=== PATIENT | female | born 1990 | race Caucasian/White ===

== ENCOUNTER → 2022-03-23 12:47 | Outpatient (CLI) | payer BC, SELFPAY ==
--- NOTE | ~2022-03-23 | US_ITS ---
US abdomen complete DATE: 03/23/2022 13:11 INDICATION: Abdominal pain for 2 days, radiating to back. Nausea. TECHNIQUE: Real-time imaging of complete abdomen COMPARISON: None FINDINGS: The liver, spleen, pancreas, gallbladder and common bile duct appear normal. Negative sonog raphic Bach's sign. Common bile duct measures 4 mm, normal Right kidney 11.6 cm length, left kidney 11.2 cm. No renal mass lesion or hydronephrosis. Normal caliber of the abdominal aorta. The inferior vena cava is unremarkable. IMPRESSION: Negative Reviewed, dictated and finalized at Location [facility]. Reviewed, dictated and finalized at location B. IMPRESSION: Negative
--- NOTE | ~2022-03-23 | XR_ITS ---
EXAMINATION: XR abdomen/kub 1V INDICATION: Unspecified abdominal pain TECHNIQUE: Supine views of the abdomen were obtained on 2 radiographs. COMPARISON: None FINDINGS: The bowel gas pattern is normal. There are no dilated loops of bowel. An IUD is noted. Ther e are phleboliths in the pelvis. The visualized osseous structures are unremarkable. IMPRESSION: 1. No radiographic correlate for the patient's symptoms. Reviewed, dictated and finalized at location A.
== END ==
PROVIDERS: PCP Family Medicine; Visit Provider Nurse Practitioner Family
DX: R10.9 Unspecified abdominal pain (principal)
CPT/HCPCS: 74018; 76700

== ENCOUNTER 2022-03-24 20:17 | Inpatient (IN) | payer BC, SELFPAY ==
--- NOTE | ~2022-03-24 | CT_ITS ---
EXAMINATION: CT abdomen pelvis w con DATE: 03/24/2022 23:40 INDICATION: Abdomen pain, vomiting and leukocytosis TECHNIQUE: Computed tomography (CT) of the abdomen and pelvis was performed with 100 cc Omnipaque 300 intravenous contrast. The dose-length product was 245.29 mGy-cm. Automated exposure control and iter ative reconstruction technique were employed. COMPARISON: None. FINDINGS: Lung bases unremarkable. Heart size normal. No significant pleural or pericardial effusion. The liver, spleen, pancreas, adrenal glands and right kidney are unremarkable. There is a subcentime ter hypodensity of the left kidney, most likely benign cysts. Gallbladder is present. Nonobstructive bowel gas pattern. There is a dilated appendix with associated appendicolith. There is significant velasquez rrounding inflammation/phlegmonous change and fluid, consistent with acute appendicitis. Cannot exclu de small periappendiceal abscess. IMPRESSION: 1. Acute appendicitis. Cannot exclude periappendiceal abscess. Reviewed, dictated and finalized at location A.
[2022-03-24 21:00] VITALS: BP 118/85; PULSE 95; RESP 18; TEMP 36.6; O2SAT 97
[2022-03-24 23:22] LABS: Appearance Urine Slightly Cloudy (Clear); Bilirubin Urine 2+ (Negative); Blood Urine Negative (Negative); Glucose Urine UA Negative (Negative); Ketones Urine 4+ mg/dL (Negative); Leukocyte Esterase Ur Trace LEU/UL (Negative); Nitrate Urine Negative (Negative); Protein Urine 1+ mg/dL (Negative); Specific Grav Ur 1.025 (1.001-1.035)
[2022-03-24 23:23] LABS: Basophils Absolute Auto 0.1 K/mm3 (0.0-0.1); Basophils Percent Auto 0.4 % (0.2-1.2); Hematocrit 41.7 % (37.0-47.0); Hemoglobin 13.8 g/dL (12.0-15.0); Immature Granulocyte Absolute 0.21 K/mm3 (0.00-0.031); Lymphocytes Absolute Auto 1.03 K/mm3 (0.9-3.2); Lymphocytes Percent Auto 4.9 % (18.3-44.2); Mean Corpuscular HGB Conc 33.1 g/dl (32-36); Mean Corpuscular Hemoglobin 31.9 pg (26-34); Mean Corpuscular Volume 96.5 fl (80-100); Mean Platelet Volume 9.8 fl (7.4-10.4); Monocytes Absolute Auto 1.4 K/mm3 (0.1-0.6); Monocytes Percent Auto 6.8 % (2.6-8.5); Neutrophils Absolute Auto 18.3 K/mm3 (1.3-6.7); Neutrophils Percent Auto 86.9 % (45.5-73.1); Platelet Count Result 284 k/mm3 (150-375); Red Blood Count 4.32 M/mm3 (4.2-5.4); Red Cell Distribution Width 11.9 % (11.5-14.5); White Blood Count 21.1 K/mm3 (4.5-10.0)
[2022-03-24 23:26] LABS: Alanine Aminotransferase 12 U/L (6-35); Albumin Level 4.5 g/dL (3.5-5.1); Alkaline Phosphatase 68 U/L (38-126); Anion Gap 9 mmol/L (8-16); Aspartate Amino Transferase 18 U/L (14-36); Bilirubin,Total 0.9 mg/dL (0.2-1.3); Blood Urea Nitrogen 8 mg/dL (7-17); Calcium 8.8 mg/dL (8.4-10.2); Carbon Dioxide 26 mmol/L (22-30); Chloride 97 mmol/L (98-107); Estimated CRCL calculation 117 ml/min; Estimated Glomerular Filt Rate > 60; Glucose 141 mg/dL (65-110); Lipase 18 U/L (23-300); Potassium 3.6 mmol/L (3.4-5.0); Sodium 132 mmol/L (137-145)
[2022-03-24] MEDS: ONDANSETRON INJ 4 MG/2 ML VIAL IV PUSH (23:27)
[2022-03-24] MEDS: FAMOTIDINE 20 MG/2 ML VIAL IV PUSH (23:27)
--- NOTE | 2022-03-24 23:34 | ED.ABDPAIN ---
HPI - Abdominal Pain General Chief Complaint: Abdominal Pain <JAIME Hebert Last Filed: 03/25/22 00:49> Stated Complaint: abdominal pain, n/v <JAIME Hebert Last Filed: 03/25/22 00:49> Time Seen by Provider: 03/24/22 23:08 <JAIME Hebert Last Filed: 03/25/22 00:49> Source: patient <JAIME Hebert Last Filed: 03/25/22 00:49> Mode of arrival: ambulatory <JAIME Hebert Last Filed: 03/25/22 00:49> Limitations: no limitations <JAIME Hebert Last Filed: 03/25/22 00:49> History of Present Illness HPI narrative: This is a 31-year-old female that presents to the emergency department for lower abdominal pain. Ongoing over the last couple of days. Associated with nausea and vomiting. Reports pain is diffusely in the lower abdomen. It radiates into her flank. Denies fever, diarrhea, dysuria, or hematuria. <JAIME Hebert Last Filed: 03/25/22 00:49> Related Data Home Medications: Home Medications Medication Instructions Recorded Confirmed levonorgestrel 20 mcg/24 hours (7 1 insert intrauterine ONCE 06/17/21 03/23/22 yrs) 52 mg intrauterine device (Mirena) <JAIME Hebert Last Filed: 03/25/22 00:49> Allergies/Adverse Reactions: Allergies Allergy/AdvReac Type Severity Reaction Status Date / Time No Known Allergies Allergy Verified 03/23/22 10:07 <JAIME Hebert Last Filed: 03/25/22 00:49> Review of Systems Review of Systems: CONSTITUTIONAL: Denies fever GASTROINTESTINAL: Reports abdominal pain, nausea, vomiting. Denies diarrhea. GENITOURINARY: Denies dysuria or hematuria. <JAIME Hebert Last Filed: 03/25/22 00:49> All systems reviewed & are unremarkable except as noted in HPI and below <Madeleine Amaro PA-C - Last Filed: 03/25/22 00:49> [facility] Past Medical History Medical History: Medical History Anxiety BMI 22.0-22.9, adult Depression <JAIME Hebert Last Filed: 03/25/22 00:49> Surgical History Surgical History: Surgical History [place] teeth removed <JAIME Hebert Last Filed: 03/25/22 00:49> Family History Family History: Family History Grandparent History of blood clots Cerebrovascular accident Father Hypertension Mother No problems noted. Sibling No problems noted. 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 HEAD: Normocephalic, atraumatic. EYES: EOMI. CHEST: Clear to auscultation. No respiratory distress. No wheezes rales or rhonchi HEART: Regular rate and rhythm. No murmur heard. Normal peripheral pulses. ABDOMEN: Soft, nondistended, normal active bowel sounds. Tender to palpation throughout the lower abdomen, without guarding. No CVA tenderness EXTREMITIES: Normal range of motion. No edema. SKIN: Warm, dry, no rash. NEURO: No focal deficits. Alert and oriented x3. PSYCH: Normal mood and affect <Madeleine Amaro PA-C - Last Filed: 03/25/22 00:49> Course
[2022-03-24 23:37] LABS: Add Urine Microscopic? YES; Color Urine Dark Yellow (Yellow)
[2022-03-24 23:39] LABS: Bacteria Urine Trace /hpf; Mucus Urine Heavy /lpf; Squamous Epithelial Cell Urine Many /hpf (Few); WBC Urine 21-30 /hpf
[2022-03-24 23:46] VITALS: BP 120/74; PULSE 94; RESP 18; O2SAT 100
[2022-03-24 23:48] VITALS: O2SAT 99
[2022-03-24] MEDS: SODIUM CHLORIDE 0.9% IV 1,000 ML 999 ML IV CONT (23:50)
[2022-03-25] VITALS (17 sets, daily range): BP systolic 103–149; BP diastolic 60–87; PULSE 66–94; RESP 12–20; TEMP 36.3–37.1; O2SAT 97–100; BMI 22.8; BMI 26.5
[2022-03-25] MEDS: SODIUM CHLORIDE 0.9% IV 1,000 ML 125 ML IV CONT ×2 (01:11→11:03)
[2022-03-25 01:19] LABS: Lactic Acid Reflex 0.7 mmol/L (0.7-2.0)
--- NOTE | 2022-03-25 01:52 | ADMGEN ---
This patient, Madonna Lackey, was admitted to 2 Medical Room 243-01. Patient/family oriented to hospital policies and general routines including ID bracelet, bed and alarms, visiting hours, pain management, procedures, bathroom and other care routines, personal items, smoking policy, room service/diet, and visiting hours. Information on how to activate the Rapid Response Team has been discussed. Patient/Family are encouraged to report perceived risks to care and to ask questions if they do not understand what they are told or what they should do.
[2022-03-25] MEDS: MORPHINE SULFATE (*CRX) 4 MG/ML INJ IV PUSH ×4 (02:16→23:12)
--- NOTE | 2022-03-25 08:19 | PM.IMHP ---
H&P: HPI History of Present Illness Date/Time: 03/25/22 08:19 Chief Complaint: lower abdominal pain Narrative: This is a 31-year-old White female that presented to the [facility] emergency department early this morning for lower abdominal pain.? it had been ongoing over the last couple of days. (further history from the patient reveals that it 1st started in the afternoon on Wednesday of last weekend. Therefore, she is now proximally 72 hours after the initial onset of discomfort).? Associated with nausea.? Reports pain is diffusely in the lower abdomen.? She tells me today that pain is more to the right than the left now.? Denies fever, diarrhea, dysuria, or hematuria. Workup in the emergency room revealed a significantly elevated white count [address]20. CT scan of the abdomen and pelvis then revealed what appeared to be an abnormal appendix with an appendicolith. (See report). Therefore, after discussing this with Madeleine in the ED we put the patient in as observation patient and I have planned on recommending an appendectomy if patient agrees. Review of Systems Review of Systems: All systems reviewed & are unremarkable except as noted in HPI and below (HPI) Constitutional: Constitutional: Reports as per HPI, Denies chills and Denies fever(s) Eyes: Eyes: Reports no additional eye complaints ENT: Reports Normal hearing present and Denies dizziness Cardiovascular: Cardiovascular: Reports no additional cardiovascular complaints, Denies chest pain and Denies irregular heart rhythm Respiratory: Respiratory: Reports no additional respiratory complaints Gastrointestinal: Gastrointestinal: Denies bloating Comments: patient did have loss of appetite over the last 2 days. Has had nausea but no vomiting. Genitourinary: Genitourinary: Denies hematuria Musculoskeletal: Musculoskeletal: Denies back pain Integumentary/Breasts: Skin/Breast: Reports system reviewed and no additional complaints, except as docu Neurologic: Reports Normal hearing present, Denies Abnormal speech present, Denies confusion and Denies dizziness Psychiatric: Psychiatric: Reports no additional psychiatric complaints and Denies confusion Endocrine: Endocrine: Reports no additional endocrine complaints Hematologic/Lymphatic: Hematologic/Lymphatic: Denies easy bleeding and Denies easy bruising Allergic/Immunologic: Allergic/Immunologic: Reports no additional allergic/immunologic complaints PMFSH Past Medical History Medical History Anxiety BMI 22.0-22.9, adult Depression Surgical History Surgical History [place] teeth removed Family History Family History Grandparent History of blood clots Cerebrovascular accident Father Hypertension Mother No problems noted. Sibling No problems noted. 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
[2022-03-25 08:48] LABS: Basophils Absolute Auto 0.1 K/mm3 (0.0-0.1); Basophils Percent Auto 0.3 % (0.2-1.2); Eosinophils Percent Auto 0.1 % (0-4.4); Hematocrit 38.8 % (37.0-47.0); Hemoglobin 12.9 g/dL (12.0-15.0); Immature Granulocyte Absolute 0.14 K/mm3 (0.00-0.031); Immature Granulocyte Percent A 0.8 % (0-0.5); Lymphocytes Absolute Auto 0.92 K/mm3 (0.9-3.2); Lymphocytes Percent Auto 5.2 % (18.3-44.2); Mean Corpuscular HGB Conc 33.2 g/dl (32-36); Mean Corpuscular Hemoglobin 32.3 pg (26-34); Mean Corpuscular Volume 97.2 fl (80-100); Mean Platelet Volume 9.7 fl (7.4-10.4); Monocytes Absolute Auto 1.2 K/mm3 (0.1-0.6); Monocytes Percent Auto 6.9 % (2.6-8.5); Neutrophils Absolute Auto 15.5 K/mm3 (1.3-6.7); Neutrophils Percent Auto 86.7 % (45.5-73.1); Platelet Count Result 242 k/mm3 (150-375); Red Blood Count 3.99 M/mm3 (4.2-5.4); Red Cell Distribution Width 11.9 % (11.5-14.5); White Blood Count 17.9 K/mm3 (4.5-10.0)
[2022-03-25 08:58] LABS: Anion Gap 6 mmol/L (8-16); Blood Urea Nitrogen 7 mg/dL (7-17); Calcium 8.1 mg/dL (8.4-10.2); Carbon Dioxide 24 mmol/L (22-30); Chloride 107 mmol/L (98-107); Estimated CRCL calculation 117 ml/min; Estimated Glomerular Filt Rate > 60; Glucose 127 mg/dL (65-110); Magnesium 1.9 mg/dL (1.6-2.3); Potassium 3.6 mmol/L (3.4-5.0); Sodium 137 mmol/L (137-145)
--- NOTE | 2022-03-25 15:01 | WPDHPUPDATE1 ---
History and Physical Update Update Date/Time: 03/25/22 15:01 History and Physical has been reviewed, including an updated exam of the patient. There are NO changes in the patient's condition. Risks, benefits, and alternatives have been discussed and questions answered. Patient agrees to proceed with procedure.
--- NOTE | 2022-03-25 16:15 | PC.NURSE ---
To OR per bed, IV saline lock. Report given to ALEJANDRO Leavitt.
[2022-03-25] MEDS: LACTATED RINGERS 1,000 ML 30 ML IV CONT ×2 (17:05→19:56)
--- NOTE | 2022-03-25 17:07 | WPDANESEPPF ---
Anes - Initial Pre Proc Eval Procedure: Operation Date: 03/25/22 15:00 Proposed Procedures p Laparoscopic Appendectomy,Possible Open - Howie Rubio MD Date/Time: 03/25/22 17:07 Surgeon: Howie Rubio MD Pre Op Diagnosis: Acute appendicitis Patient Data Age: 31 Gender: F Height: 1.63 m Weight: 70.1 kg Last Vital Signs Temp 37.0 C 03/25/22 16:51 Pulse 73 03/25/22 16:51 Resp 14 03/25/22 16:51 BP 114/67 03/25/22 16:51 Pulse Ox 100 03/25/22 16:51 O2 Del Method Room Air 03/25/22 16:51 Allergies Allergy/AdvReac Type Severity Reaction Status Date / Time No Known Allergies Allergy Verified 03/23/22 10:07 Home Medications Medication Instructions Recorded Confirmed Type levonorgestrel 20 mcg/24 hours (7 1 insert intrauterine ONCE 06/17/21 03/25/22 History yrs) 52 mg intrauterine device (Mirena) fluoxetine 40 mg capsule 40 mg PO DAILY #90 caps 07/24/21 03/25/22 Rx amoxicillin 875 mg-potassium 1 tablet PO BID #20 tabs 03/24/22 03/25/22 Rx clavulanate 125 mg tablet valacyclovir 1 gram tablet 2,000 mg PO Q12H PRN Cold Sores 03/25/22 03/25/22 History Laboratory Tests 03/24/22 03/24/22 03/24/22 23:09 23:09 23:09 WBC 21.1 K/mm3 H K/mm3 (4.5-10.0) RBC 4.32 M/mm3 M/mm3 (4.2-5.4) Hgb 13.8 g/dL g/dL (12.0-15.0) Hct 41.7 % % (37.0-47.0) MCV 96.5 fl fl (80-100) MCH 31.9 pg pg (26-34) MCHC 33.1 g/dl g/dl (32-36) RDW 11.9 % % (11.5-14.5) Plt Count 284 k/mm3 k/mm3 (150-375) MPV 9.8 fl fl (7.4-10.4) Immature Gran % (Auto) 1.0 % H % (0-0.5) Neut % (Auto) 86.9 % H % (45.5-73.1) Lymph % (Auto) 4.9 % L % (18.3-44.2) [place] % (Auto) 6.8 % % (2.6-8.5) Eos % (Auto) 0.0 % % (0-4.4) Baso % (Auto) 0.4 % % (0.2-1.2) Lymph # (Auto) 1.03 K/mm3 K/mm3 (0.9-3.2) [place] # (Auto) 1.4 K/mm3 H K/mm3 (0.1-0.6) Eos # (Auto) 0.0 K/mm3 K/mm3 (0-0.3) Baso # (Auto) 0.1 K/mm3 K/mm3 (0.0-0.1) Abs Immat Gran (auto) 0.21 K/mm3 H K/mm3 (0.00-0.031) Absolute Neuts (auto) 18.3 K/mm3 H K/mm3 (1.3-6.7) Absolute Nucleated RBC 0.0 K/mm3 K/mm3 (0.0-0.012) Nucleated RBC % 0.0 % % (0.0-0.2) Sodium 132 mmol/L L mmol/L (137-145) Potassium 3.6 mmol/L mmol/L (3.4-5.0) Chloride 97 mmol/L L mmol/L (98-107) Carbon Dioxide 26 mmol/L mmol/L (22-30) Anion Gap 9 mmol/L mmol/L (8-16) BUN 8 mg/dL mg/dL (7-17) Creatinine 0.50 mg/dL L mg/dL (0.7-1.0) Estim Creat Clear Calc 117 ml/min ml/min Estimated GFR > 60 (59 - ) Glucose 141 mg/dL H mg/dL (65-110) Lactic Acid Calcium 8.8 mg/dL mg/dL (8.4-10.2) Magnesium Total Bilirubin 0.9 mg/dL mg/dL (0.2-1.3) AST 18 U/L U/L (14-36) ALT 12 U/L U/L (6-35) Alkaline Phosphatase 68 U/L U/L (38-126) Total Protein 8.0 g/dL g/dL (6.3-8.2) Albumin 4.5 g/dL g/dL (3.5-5.1) Lipase 18 U/L L U/L (23-300) Urine Color Dark yellow (Yellow) Urine Appearance Slightly cloudy (Clear) Urine pH 6.0 (5.0-9.0) Ur Specific Ucon 1.025 (1.001-1.035) Urine Protein 1+ mg/dL H mg/dL (Negative) Urine Glucose (UA) Negative mg/dL mg/dL (Negative) Urine Ketones 4+ mg/dL H mg/dL (Negative) Ur Blood (Man) Negative (Negative) Urine Nitrate Negative (Negative) Urine Bilirubin 2+ H (Negative) Urine Urobilinogen 4.0 mg/dL H mg/dL (<2.0) Leukocyte Esterase Rfl Trace PETRONA/UL H PETRONA/UL (Negative) Urine RBC 3-5 /hpf H /hpf (0-2) Urine WBC 21-30 /hpf H /hpf
[2022-03-25] MEDS: LIDO 1%/EPINEPHRINE/PF 1:200,000 30 ML VIAL XX (18:22)
--- NOTE | 2022-03-25 20:06 | W.PM.PROC2 ---
Procedure Note - Detailed Date of Procedure 03/25/22 Pre-op Diagnosis Acute appendicitis Post-op Diagnosis Other (Acute perforated appendicitis with walled-off abscess) Procedure Performed laparoscopic appendectomy Surgeon Howie Rubio MD Air Hose Coupler Daryn ALLEN. [facility] Anesthesia General Indications Patient had a CT scan showing inflammation of the appendix and a fecalith. (see H&P). Findings The appendix was quite inflamed and was curled behind the ileum in a retro ileal position trapped between the retroperitoneum, the posterior portion of the ileum and the medial portion of the cecum. Upon dissecting it out, it did appear to have a walled off perforation present. Description of Procedure The patient was seen again in the Holding Room. The risks, benefits, complications, treatment options, and expected outcomes were discussed with the patient and/or family. The possibilities of reaction to medication, pulmonary aspiration, perforation of viscus, bleeding, recurrent infection, finding a normal appendix, the need for additional procedures, failure to diagnose a condition, and creating a complication requiring transfusion or operation were discussed. There was concurrence with the proposed plan and informed consent was obtained. The site of surgery was properly noted/marked. The patient was taken to Operating Room, and a time out was preformed which identified this as the proper patient, and the procedure verified as laparoscopic appendectomy, possible open. The patient was placed in the supine position and general anesthesia was induced, along with placement of an orogastric tube, SCD hose, and a Mendoza catheter. The abdomen was prepped and draped in a sterile fashion. A 5 mm umbilical incision was made and the peritoneal cavity was accessed using the Veress needle technique. Once the abdomen was insufflated to 14 mmHg pressure a 5 mm XL trocar over the 0? 5 mm scope was carefully twisted into the abdomen via the umbilicus. The pneumoperitoneum was then established to steady pressure of 14 mm Hg. A 12 mm laparoscopic port was placed through a transverse suprapubic incision. An additional 5 mm cannula was then placed in the left lower quadrant of the abdomen at a level half way between the umbilicus and pubic symphysis under direct vision. A careful evaluation of the entire abdomen was carried out. The patient was placed in Trendelenburg and left lateral decubitus position. The small intestines were retracted in the cephalad and left lateral direction away from the pelvis and right lower quadrant. The patient was found to have an enlarged and inflamed appendix that was extending [into the right side of the pelvis. As above in findings there did appear as I dissected out to be drainage from a hole in the side of the mid appendix. The appendix was carefully dissected. Once it was free a 45 mm ethicon endogastroentestinal stapler with a vascular load was placed across the mesoappendix. This was fired and hemostasis was checked along the staple line and appeared to be adequate. For this patient, this divided the entire mesoappendix and we were able to proceed immediately to stapling off the appendix at it's junction with the cecum. The appendix was then divided at its base using the same 45 mm stapler with a 3.5 mm bowel wall load. Minimal appendiceal stump was left in place. There was no evidence of bleeding, leakage, or complication after division of the appendix at its junction with the cecum.. The appendix was then placed in an endobag which had been brought through the 12 mm suprapubic port site. The appendix and the bag were then extracted through this larger port site in the suprapubic position. Following this because there appeared to be a perforation and there was significant inflammation I decided to place a it round 15. TORRES drain. To do this we removed the left lower quadrant 5 mm trocar. I placed local anesthetic at the selected si
[2022-03-25] MEDS: ONDANSETRON INJ 4 MG/2 ML VIAL IV PUSH (20:12)
[2022-03-25] MEDS: fentaNYL CITRATE INJ (*CRX) 100 MCG/2 ML VIAL 25 MCG IV PUSH ×8 (20:22→20:38)
[2022-03-25] MEDS: SENNA/DOCUSATE SODIUM TABLET 2 TAB PO (23:07)
[2022-03-26 02:59] VITALS: BP 110/72; PULSE 69; RESP 21; TEMP 36.7; O2SAT 100
[2022-03-26] MEDS: SODIUM CHLORIDE 0.9% IV 1,000 ML 125 ML IV CONT (05:18)
[2022-03-26] MEDS: MORPHINE SULFATE (*CRX) 4 MG/ML INJ IV PUSH ×2 (05:19→21:57)
[2022-03-26 06:00] VITALS: BP 110/66; PULSE 75; RESP 20; TEMP 36.3; O2SAT 98
[2022-03-26 06:31] LABS: Basophils Absolute Auto 0.1 K/mm3 (0.0-0.1); Basophils Percent Auto 0.4 % (0.2-1.2); Eosinophils Percent Auto 0.1 % (0-4.4); Hematocrit 37.1 % (37.0-47.0); Hemoglobin 12.3 g/dL (12.0-15.0); Immature Granulocyte Absolute 0.11 K/mm3 (0.00-0.031); Immature Granulocyte Percent A 0.6 % (0-0.5); Lymphocytes Absolute Auto 1.31 K/mm3 (0.9-3.2); Lymphocytes Percent Auto 6.9 % (18.3-44.2); Mean Corpuscular HGB Conc 33.2 g/dl (32-36); Mean Corpuscular Hemoglobin 32.5 pg (26-34); Mean Corpuscular Volume 98.1 fl (80-100); Mean Platelet Volume 10.2 fl (7.4-10.4); Monocytes Absolute Auto 1.4 K/mm3 (0.1-0.6); Monocytes Percent Auto 7.2 % (2.6-8.5); Neutrophils Percent Auto 84.8 % (45.5-73.1); Platelet Count Result 305 k/mm3 (150-375); Red Blood Count 3.78 M/mm3 (4.2-5.4); Red Cell Distribution Width 11.9 % (11.5-14.5); White Blood Count 18.9 K/mm3 (4.5-10.0)
[2022-03-26 06:42] LABS: Anion Gap 6 mmol/L (8-16); Blood Urea Nitrogen 6 mg/dL (7-17); Calcium 8.4 mg/dL (8.4-10.2); Carbon Dioxide 25 mmol/L (22-30); Chloride 103 mmol/L (98-107); Estimated CRCL calculation 100 ml/min; Estimated Glomerular Filt Rate > 60; Glucose 120 mg/dL (65-110); Potassium 3.7 mmol/L (3.4-5.0); Sodium 134 mmol/L (137-145)
[2022-03-26] MEDS: FLUoxetine HCL 20 MG CAPSULE 40 MG PO (08:44)
[2022-03-26] MEDS: HYDROcodone/acetaminophen (*CRX) 7.5-325 MG TABLET 1 TAB PO ×3 (08:45→17:46)
[2022-03-26] MEDS: ENOXAPARIN 40 MG/0.4 ML SYRINGE SUB-Q (08:46)
--- NOTE | 2022-03-26 09:18 | WPDANESPN ---
Anes - Prog Note Post-Op Date/Time: 03/26/22 09:18 Cardiovascular status: normal Respiratory status: normal Airway patency: baseline Mental status: baseline Post-Op hydration status: normal Vital Signs: Last Vital Signs Temp 36.3 C L 03/26/22 06:00 Pulse 75 03/26/22 06:00 Resp 20 03/26/22 06:00 BP 110/66 03/26/22 06:00 Pulse Ox 98 03/26/22 06:00 O2 Del Method Room Air 03/25/22 21:14 O2 Flow Rate 10 03/25/22 19:56 Pain Score (VAS): 2 I/O: Intake & Output 03/25/22 03/26/22 03/26/22 23:59 07:59 15:59 Intake Total 550 1050 118 Output Total 230 70 Balance 320 980 118 Laboratory Tests 03/26/22 05:27 03/26/22 05:27 03/26/22 03/26/22 05:27 05:27 WBC 18.9 H RBC 3.78 L Hgb 12.3 Hct 37.1 MCV 98.1 MCH 32.5 MCHC 33.2 RDW 11.9 Plt Count 305 MPV 10.2 Immature Gran % (Auto) 0.6 H Neut % (Auto) 84.8 H Lymph % (Auto) 6.9 L [place] % (Auto) 7.2 Eos % (Auto) 0.1 Baso % (Auto) 0.4 Lymph # (Auto) 1.31 [place] # (Auto) 1.4 H Eos # (Auto) 0.0 Baso # (Auto) 0.1 Abs Immat Gran (auto) 0.11 H Absolute Neuts (auto) 16.0 H Absolute Nucleated RBC 0.0 Nucleated RBC % 0.0 Sodium 134 L Potassium 3.7 Chloride 103 Carbon Dioxide 25 Anion Gap 6 L BUN 6 L Creatinine 0.60 L Estim Creat Clear Calc 100 Estimated GFR > 60 Glucose 120 H Calcium 8.4 Microbiology 03/25/22 00:58 Blood Blood Culture - Preliminary 03/25/22 00:58 Blood Blood Culture - Preliminary Patient Feedback: Patient satisfied with anesthetic care.
[2022-03-26 10:21] VITALS: BP 100/61; PULSE 65; RESP 16; TEMP 36.7; O2SAT 99
[2022-03-26 14:42] VITALS: BP 98/57; PULSE 61; RESP 16; TEMP 36.4; O2SAT 100
--- NOTE | 2022-03-26 15:12 | PM.PNGS ---
Progress Note: A&P Assessment and Plan (1) Acute appendicitis with perforation and localized peritonitis, with abscess: Code(s): K35.33 - Acute appendicitis with perforation and localized peritonitis, with abscess Status: Acute Assessment and Plan: Doing well postop day 1. Will keep her for another day as she is still learning out him to the TORRES drain. She is not passing gas or had a bowel movement yet and has probably a mild ileus. Nurses will be moving her up to a full liquid diet & we will see how she does with advancement of her diet over the next 12-24 hours. She has not noticed flatus and hopefully will have a BM during that time too. This will also allow her to have another 24 hours of IV antibiotics which will not hurt. (2) Abdominal pain: Code(s): R10.9 - Unspecified abdominal pain Status: Acute (3) Anxiety: Code(s): F41.9 - Anxiety disorder, unspecified Status: Acute Assessment and Plan: patient does not seem anxious today. Additional Plan Explained use of TORRES drain and the need to empty and record that drainage when she goes home. Subjective Subjective Date/Time Seen: 03/26/22 15:12 Post Op day: 1 ( Doing well status post laparoscopic appendectomy for perforated appendicitis) Patient reports: no new complaints, still having pain ( across the lower abdomen), tolerating liquids well, no flatus and no bowel movement Interval history: patient states she has walked in the hallway x1. Nurses are teaching her how to empty the TORRES drain. Denies nausea and for lunch did take more of a clear liquid diet. Nurse states she is planning on moving her up to a full liquid diet for supper. Review of Systems Review of Systems: All systems reviewed & are unremarkable except as noted in HPI and below Constitutional: Constitutional: Reports as per HPI, Denies chills and Denies fever(s) Cardiovascular: Cardiovascular: Denies chest pain and Denies dyspnea Respiratory: Respiratory: Reports no additional respiratory complaints and Denies dyspnea Gastrointestinal: Gastrointestinal: Reports as per HPI and Denies bloating Musculoskeletal: Musculoskeletal: Reports no additional musculoskeletal complaints Neurologic: Denies memory loss Psychiatric: Psychiatric: Denies anxiety and Denies memory loss Exam Const: General: cooperative, comfortable, alert and awake Orientation/consciousness: patient oriented x3 HENMT: Head: normal to inspection Mouth: Yes moist mucous membranes Eyes: Sclera: sclerae normal Neck: Neck: normal visual inspection Chest: Chest palpation & inspection: normal inspection of the chest Resp: Effort & Inspection: normal respiratory effort Auscultation: clear to auscultation bilaterally Cardio: Rate: regular rate GI: Inspection: incision ( Clean and dry with surgical glue in place) and other ( some serosanguineous drainage in and around the TORRES drain.) Auscultation: Hypoactive bowel sounds present Other: Nurses have changed the 2 by 2's and Tegaderm on the TORRES drain x2 today. Neuro: General: patient oriented x3 Cranial nerves: Yes Equal, round and reactive pupils present Objective Data Vital Signs Vital Signs: Vital Signs - 24 hr 03/25/22 16:51 03/25/22 19:56 03/25/22 20:11 Temperature 37.0 C 37.1 C Pulse Rate 73 91 67 Respiratory Rate 14 20 20 Blood Pressure 114/67 123/65 115/70 Pulse Oximetry 100 100 99 Oxygen Delivery Room Air Simple Face Mask Room Air Oxygen Flow Rate 10 03/25/22 20:26 03/25/22 20:40 03/25/22 20:50 Temperature Pulse Rate 72 89 66 Respiratory Rate 15 12 14 Blood Pressure 111/72 110/72 105/70 Pulse Oximetry 97 98 99 Oxygen Delivery Room Air Room Air Room Air Oxygen Flow Rate 03/25/22 21:14 03/25/22 21:14 03/25/22 21:59 Temperature 36.8 C 36.8 C Pulse Rate 76 94 Respiratory Rate 14 20 Blood Pressure 103/80 149/87 H Pulse Oximetry 97 98 Oxygen Delivery Room Air Oxygen Flow Rate
[2022-03-26] MEDS: MAGNESIUM HYDROXIDE SUSP 30 ML UDC PO (18:01)
[2022-03-26] MEDS: SODIUM CHLORIDE 0.9% IV 1,000 ML 50 ML IV CONT (18:01)
[2022-03-26 18:35] VITALS: BP 115/74; PULSE 85; RESP 16; TEMP 36.8; O2SAT 99
[2022-03-26 19:43] VITALS: BP 111/63; PULSE 79; RESP 18; TEMP 36.4; O2SAT 100
[2022-03-26] MEDS: SENNA/DOCUSATE SODIUM TABLET 2 TAB PO (20:32)
[2022-03-27 00:06] VITALS: BP 112/67; PULSE 78; RESP 16; TEMP 36.3; O2SAT 97
[2022-03-27 03:14] VITALS: BP 108/65; PULSE 77; RESP 18; TEMP 36.5; O2SAT 97
[2022-03-27] MEDS: HYDROcodone/acetaminophen (*CRX) 7.5-325 MG TABLET 1 TAB PO ×2 (04:26→11:07)
[2022-03-27 05:32] LABS: Basophils Absolute Auto 0.1 K/mm3 (0.0-0.1); Basophils Percent Auto 0.5 % (0.2-1.2); Eosinophils Percent Auto 0.4 % (0-4.4); Hematocrit 32.6 % (37.0-47.0); Immature Granulocyte Absolute 0.06 K/mm3 (0.00-0.031); Immature Granulocyte Percent A 0.6 % (0-0.5); Lymphocytes Absolute Auto 1.43 K/mm3 (0.9-3.2); Lymphocytes Percent Auto 15.1 % (18.3-44.2); Mean Corpuscular HGB Conc 33.7 g/dl (32-36); Mean Corpuscular Hemoglobin 32.7 pg (26-34); Monocytes Absolute Auto 0.7 K/mm3 (0.1-0.6); Monocytes Percent Auto 7.7 % (2.6-8.5); Neutrophils Absolute Auto 7.2 K/mm3 (1.3-6.7); Neutrophils Percent Auto 75.7 % (45.5-73.1); Platelet Count Result 246 k/mm3 (150-375); Red Blood Count 3.36 M/mm3 (4.2-5.4); Red Cell Distribution Width 11.9 % (11.5-14.5); White Blood Count 9.5 K/mm3 (4.5-10.0)
[2022-03-27 05:45] LABS: Anion Gap 3 mmol/L (8-16); Blood Urea Nitrogen 6 mg/dL (7-17); Calcium 7.5 mg/dL (8.4-10.2); Carbon Dioxide 28 mmol/L (22-30); Chloride 105 mmol/L (98-107); Estimated CRCL calculation 100 ml/min; Estimated Glomerular Filt Rate > 60; Glucose 103 mg/dL (65-110); Potassium 3.2 mmol/L (3.4-5.0); Sodium 136 mmol/L (137-145)
[2022-03-27] MEDS: ENOXAPARIN 40 MG/0.4 ML SYRINGE SUB-Q (08:37)
[2022-03-27] MEDS: FLUoxetine HCL 20 MG CAPSULE 40 MG PO (08:38)
--- NOTE | 2022-03-27 09:28 | PC.NURSE ---
At 0603, an output of 400 mLs was documented under catheter. Patient did not have a catheter. Urine was voided.
[2022-03-27 10:33] VITALS: BP 116/72; PULSE 71; RESP 18; TEMP 37.1; O2SAT 100
--- NOTE | 2022-03-27 13:40 | PM.DS ---
DS: Admitting Diagnosis Discharge Date 03/27/2022 Admitting Diagnosis acute appendicitis, uncomplicated DS: Discharge Diagnosis Discharge Diagnosis Plan acute appendicitis with perforation and walled off abscess. DS: Summary Hospital Course Reason for hospitalization: The Perforated appendicitis. Hospital Course: The patient presented to the hospital with [address] scan and workup in the emergency room revealed signs and symptoms consistent with acute appendicitis. There was no sign of perforation on her original CT although there was a question of a Ovarian cyst on the right on review with the radiologist and I suspect that that fluid was really portion of an abscess walled off between the ovary and the tip of the appendix. at the time of surgery the appendix was very inflamed and trapped between the back of the cecum, ileum, retroperitoneum and ovary inferiorly. There was definite fluid around the appendix with purulent appearance. The drain was therefore left in place. patient apparently had a mild postoperative ileus but this seems to be resolving. She also had some urinary hesitancy after having a Mendoza catheter placed for the surgery but is voiding well now. Status at Discharge Functional status at discharge: independent ambulation Overall status at discharge: patient is not back to baseline ( Patient still moving slowly after surgery and has TORRES drain in place.) Time Spent with Patient Time attestation: Total time spent providing and/or coordinating discharge services: Time spent: Greater than 30 minutes Specific discharge activities: Careful instructions given for her drain care and follow-up in the office. She will also watch her wounds for infection. Exam Const: General: cooperative, comfortable, alert and awake Orientation/consciousness: patient oriented x3 HENMT: Head: normal to inspection Mouth: Yes moist mucous membranes Eyes: Sclera: sclerae normal Pupils: Equal, round and reactive pupils present Neck: Neck: normal visual inspection and no JVD Chest: Chest palpation & inspection: normal inspection of the chest Resp: Effort & Inspection: normal respiratory effort Auscultation: clear to auscultation bilaterally Cardio: Jugular venous distension: no JVD Rate: regular rate GI: Inspection: incision ( Clean and dry with surgical glue in place) and no visible herniation Auscultation: normal bowel sounds Rectal Exam: deferred Other: TORRES drain exiting the right lower quadrant has minimal serous drainage on the dressing and serosanguineous fluid in the TORRES bulb. Approximately 20 cc out for the left 6 hours. Neuro: General: patient oriented x3 DS: Data Data Completed and Pending Pending studies at discharge: Pending at discharge 03/25/22 18:41 Surgical [PTH] Routine Labs on day of discharge: Labs from last 24 hours 03/27/22 03/27/22 05:01 05:01 WBC 9.5 RBC 3.36 L Hgb 11.0 L Hct 32.6 L MCV 97.0 MCH 32.7 MCHC 33.7 RDW 11.9 Plt Count 246 MPV 10.0 Immature Gran % (Auto) 0.6 H Neut % (Auto) 75.7 H Lymph % (Auto) 15.1 L [place] % (Auto) 7.7 Eos % (Auto) 0.4 Baso % (Auto) 0.5 Lymph # (Auto) 1.43 [place] # (Auto) 0.7 H Eos # (Auto) 0.0 Baso # (Auto) 0.1 Abs Immat Gran (auto) 0.06 H Absolute Neuts (auto) 7.2 H Absolute Nucleated RBC 0.0 Nucleated RBC % 0.0 Sodium 136 L Potassium 3.2 L Chloride 105 Carbon Dioxide 28 Anion Gap 3 L BUN 6 L Creatinine 0.60 L Estim Creat Clear Calc 100 Estimated GFR > 60 Glucose 103 Calcium 7.5 L Preliminary micro results at discharge 03/25/22 00:58 Blood Culture - Preliminary Blood 03/25/22 00:58 Blood Culture - Preliminary Blood Discharge Plan Discharge Attending physician on discharge: Howie Rubio Consulting providers: Madeleine Amaro Discharging Clinician: Howie Rubio Anticipated Discharge Date/Time:
[2022-03-27 13:54] VITALS: BP 103/68; PULSE 70; RESP 18; TEMP 36.7; O2SAT 98
== END 2022-03-27 15:00 | disposition home or self-care (01) | DRG 340 ==
LOC: ANHED 03-25 00:48 → ANH2MED 03-25 00:57
PROVIDERS: Physician Assistant; Admitting Provider Surgery; Emergency Provider Emergency Medicine; PCP Family Medicine; Visit Provider Surgery
PROC: 0DTJ4ZZ Resection of Appendix, Percutaneous Endoscopic Approach (ICD-10-PCS; CPT 44970; principal; 2022-03-25 17:00)
DX: K35.33 Acute appendicitis with perforation, localized peritonitis, and gangrene, with abscess (principal); F41.9 Anxiety disorder, unspecified; E86.0 Dehydration
CPT/HCPCS: 36415; 74177; 80048; 80053; 81001; 81025; 83605; 83690; 83735; 85025; 87040; 87086; 88304; 96365; 96366; 96367; 96375; 96376; 99285; A9270; G0378; J0131; J0330; J1650; J2250; J2270; J2405; J2543; J2704; J2710; J3010; J7030; J7120; Q9967